=== PATIENT | male | born 1995 | race Two or more races ===

== ENCOUNTER 2023-08-30 10:22 | Emergency (ER) | payer OTHER ==
[~2023-08-30] VITALS: Ht 180.3 cm; Wt 111.1 kg
[2023-08-30] MEDS ORDERED: LIDOCAINE 1% INJ 50 ML MDV IJ ONE (10:51)
[2023-08-30] MEDS ORDERED: TDAP [DIPH/PERTUSSIS/TET] 0.5 ML VIAL IM ONE (11:20)
[2023-08-30] MEDS: TDAP [DIPH/PERTUSSIS/TET] 0.5 ML VIAL IM ONE (11:26)
[2023-08-30 12:47] VITALS: BP 127/96; TEMP 98; O2SAT 99
== END 2023-08-30 12:48 | disposition home or self-care (01) ==
LOC: ER 10:31
DX: S61.412A Laceration without foreign body of left hand, initial encounter (principal); W01.0XXA Fall on same level from slipping, tripping and stumbling without subsequent striking against object, initial encounter; Y93.89 Activity, other specified; Y92.89 Other specified places as the place of occurrence of the external cause; Y99.8 Other external cause status
CPT/HCPCS: 99283; 12002; 90471; 90715; 73130; J3490; A6403

== ENCOUNTER 2023-09-02 10:29 | Emergency (ER) | payer OTHER ==
[~2023-09-02] VITALS: Ht 180.3 cm; Wt 106.6 kg
[2023-09-02 10:34] VITALS: BP 127/67; TEMP 98.4
[2023-09-02 10:45] VITALS: O2SAT 100
== END 2023-09-02 10:46 | disposition home or self-care (01) ==
LOC: ER 10:31
DX: S61.412D Laceration without foreign body of left hand, subsequent encounter (principal); X58.XXXD Exposure to other specified factors, subsequent encounter
CPT/HCPCS: 99281; A6403

== ENCOUNTER 2023-09-09 13:34 | Emergency (ER) | payer OTHER ==
[2023-09-09 16:04] VITALS: O2SAT 98
== END 2023-09-09 16:06 | disposition home or self-care (01) ==
LOC: ER 13:34
DX: S61.412D Laceration without foreign body of left hand, subsequent encounter (principal); Z48.02 Encounter for removal of sutures; X58.XXXD Exposure to other specified factors, subsequent encounter
CPT/HCPCS: 99281; A6403